=== PATIENT | female | born 1990 | race Caucasian/White ===

== ENCOUNTER 2021-04-07 04:43 | Emergency (ER) | payer OTHER, SELFPAY ==
[2021-04-07 04:52] VITALS: BP 148/105; PULSE 90; RESP 20; TEMP 36.6; O2SAT 98; BMI 34.3
[2021-04-07 04:58] VITALS: BP 151/112; PULSE 96; RESP 24; O2SAT 97
--- NOTE | 2021-04-07 04:59 | CTR_ITS ---
PROCEDURE INFORMATION: Exam: CT Abdomen And Pelvis With Contrast Exam date and time: 04/07/2021 4:59 AM Age: 31 years old Clinical indication: Abdominal pain; Acute; Additional info: Abd pain TECHNIQUE: Imaging protocol: Computed tomography of the abdomen and pelvis with contrast. Radiation optimization: All CT scans at this facility use at least one of these dose optimization techniques: automated exposure control; mA and/or kV adjustment per patient size (includes targeted exams where dose is matched to clinical indication); or iterative reconstruction. Contrast material: OMNI 300; Contrast volume: 95 ml; Contrast route: INTRAVENOUS (IV); COMPARISON: CT Abdomen/Pelvis Renal 05754 11/02/2014 2:52 PM RADIATION DOSE METRICS: Total DLP (mGy-cm): 1642.5 FINDINGS: Liver: Normal. No mass. Gallbladder and bile ducts: Normal. No calcified stones. No ductal dilation. Pancreas: Normal. No ductal dilation. Spleen: Normal. No splenomegaly. Adrenal glands: Normal. No mass. Kidneys and ureters: There is a 1.4 mm nonobstructing calculus seen in the upper pole of the left kidney. There is a delayed nephrogram seen on the right. There is hydronephrosis and hydroureter seen with a partially obstructing 4 mm distal right ureteral calculus seen within the right hemipelvis. Stomach and bowel: Unremarkable. No obstruction. No mucosal thickening. Appendix: No evidence of appendicitis. Intraperitoneal space: Unremarkable. No free air. No significant fluid collection. Vasculature: Unremarkable. No abdominal aortic aneurysm. Lymph nodes: Unremarkable. No enlarged lymph nodes. Urinary bladder: Unremarkable as visualized. Reproductive: There is a 4 x 4 x 4.5 cm hypoattenuation cystic mass seen within the right ovary compatible with a benign or functional ovarian cyst. There is a heterogeneous myometrial mass seen within the uterine fundus on the left measuring approximately 4.9 x 5.5 x 4.4 cm. This likely represents a uterine fibroid. Bones/joints: Unremarkable. No acute fracture. Soft tissues: Unremarkable. CT/CT abdomen pelvis w con* [id number] IMPRESSION: 1. Partially obstructing 4 mm distal right ureteral calculus seen within the right hemipelvis. 2. Nonobstructing 1.4 mm left renal calculus. 3. Probable benign uterine fibroid measuring up to 5.5 cm. 4. Benign or functional right ovarian cyst measuring up to 4.5 cm. No further workup needed. Radiation Dose CTDIVOL = (mGy): DLP = 1642.5 (mGy-cm)
--- NOTE | 2021-04-07 05:00 | ED_ITS ---
Documented by User: Vanessa Baumann MD 04/07/21 05:02 HPI - Abdominal Pain General: Chief Complaint: Abdominal Pain Stated Complaint: r sided abd pain Time Seen by Provider: 04/07/21 04:54 Source: patient Mode of arrival: ambulatory Limitations: no limitations History of Present Illness: HPI narrative: 31-year-old female who states she been having abdominal pain over the last 6 days. States it has been in the right lower quadrant suprapubic and right flank. She states that this came and went but tonight it got much worse. States her pain is currently an 8 out of 10. She denies any nausea vomiting. Denies any fever. She denies any worsening or improving factors. MD elicited complaint: abdominal pain Associated Symptoms: Denies chills, dysuria and fever(s) Review of Systems Const: Denies: fever(s), chills, body aches or change in appetite Eyes: Denies: blurry vision or eye discomfort ENMT: Denies: throat pain or dental pain Card: Denies: chest pain Resp: Denies: dyspnea GI: Reports: abdominal pain : Denies: dysuria Musc: Denies: neck pain or back pain Skin/Breast: Denies: rash Neuro: Denies: headache(s) Psych: Denies: depression [place]/Lymph: Denies: easy bruising All/Imm: Denies: urticaria Physical Exam Const: COMMON NORMALS: no acute distress, patient oriented x3 and healthy appearing HENMT: COMMON NORMALS: normocephalic and atraumatic HEAD & SCALP: normocephalic and atraumatic Eye: COMMON NORMALS: Equal, round and reactive pupils present and EOMs intact bilaterally PUPIL: Yes Equal, round and reactive pupils present Neck/C-Spine: COMMON NORMALS: full ROM and supple Chest: COMMONS NORMALS: normal inspection of the chest and normal palpation of entire chest wall Resp: COMMON NORMALS: normal respiratory effort, No retractions, No use of accessory muscles and clear to auscultation bilaterally AUSCULTATION: clear to auscultation bilaterally Cardio: COMMON NORMALS: regular rate, regular rhythm and No murmurs present (Cardio) RATE: regular rate RHYTHM: regular rhythm GI: COMMON NORMALS: Normal to inspection, nondistended, normoactive bowel sounds present, Soft to palpation, non-tender and no masses PALPATION: Yes Soft to palpation and Yes Tenderness to palpation present (GI) Details: RLQ Extremity: COMMON NORMALS: normal to inspection and full ROM Neuro: COMMON NORMALS: patient oriented x3, moves all extremities and no focal motor deficits Psych: COMMON NORMALS: mental status grossly normal, Normal thought process present and cooperative THOUGHT PROCESS: Normal thought process present Skin: COMMON NORMALS: no rashes or lesions noted and no wounds GENERAL SKIN EXAM: no rashes or lesions noted Course Vital Signs: Vital signs: Vital Signs Temperature 98 F 04/07/21 04:52 Pulse Rate 74 04/07/21 06:17 Respiratory Rate 18 04/07/21 06:17 Blood Pressure 126/82 04/07/21 06:17 Pulse Oximetry 97 04/07/21 06:17 MDM - Abdominal Pain Lab Data: Labs: Lab Results 04/07/21 04/07/21 04/07/21 Range/Units 05:00 05:00 05:00 WBC 9.3 (4.0-10.0) 10^3/ uL RBC 4.96 (4.1-5.3) 10^6/u L Hgb 13.6 (11.5-15.3) g/dL Hct 43.2 (37.0-47.0) % MCV 87.1 (81-99) fL MCH 27.4 L (28.0-34.0) pg MCHC 31.5 (30.0-36.0) g/dL RDW 13.2 (12.1-15.1) % Plt Count 392 (130-400) 10^3/c mm MPV 9.4 (7.4-10.4) fL Neut % (Auto) 52.7 % Lymph % (Auto) 34.1 % [place] % (Auto) 8.3 % Eos % (Auto) 3.6 % Baso % (Auto) 1.1 % Neut # (Auto) 4.89 (1.8-7.7) 10^3/u L Lymph # (Auto) 3.2 (0.8-4.8) 10^3/u L [place] # (Auto) 0.8 (0.2-0.9) 10^3/u L Eos # (Auto) 0.3 (0.0-0.8) 10^3/u L Baso # (Auto) 0.1 (0.0-0.1) 10^3/u L Nucleated RBC % (a uto) 0 % Nucleated RBCs # 0.0 /100WBC Sodium 140 (136-145) mmol/L Potassium 4.0 (3.5-5.1) mmol/L Chloride 104 (98-107) mmol/L Carbon Dioxide 24 (22-29) mmol/L Anion Gap 16.0 (5-19) BUN 10 (6-20) mg/dL Creatinine 0.8 (0.5-0.9) mg/dL GFR Calculation 82.6 L (90-130) mL/min Glucose 90 (65-115) mg/dL Calculated Osmolal ity 289 (285-295) mOsm/k g Calcium 8.9 (8.5-10.5) mg/dL Total Bilirubin 0.3 (0.15-1.2) mg/dL AST 18 (0-32) U/L ALT 20 (0-33) U/L Alkaline Phosphata se 66 (35-105) IU/L Total Protein 6.7 (6.6-8.7) g/dL Albumin 4.3 (3.5-5.2) g/dL Globulin 2.4 (1.3-4.6) g/dL Lipase 16 (13-60) U/L HCG, Qual Negative (Negative) Urine Color (Yellow) Urine Appearance (CLEAR) Urine pH (5-7) Ur Specific Gravit y (1.005-1.030) Urine Protein (Negative) Urine Glucose (UA) (Normal) Urine Ketones (Negative) Urine Blood (Negative) Urine Nitrate (Negative) Urine Bilirubin (Negative) Urine Urobilinogen (Negative) mg/dL Ur Leukocyte Karoline ase (Negative) Urine RBC (0-2) /hpf Urine WBC (0-5) /hpf Ur Squamous Epith Cells (0-5) /hpf Amorphous Sediment Urine Bacteria (NONE) /hpf 04/07/21 Range/Units 05:10 WBC (4.0-10.0) 10^3/ uL RBC (4.1-5.3) 10^6/u L Hgb (11.5-15.3) g/dL Hct (37.0-47.0) % MCV (81-99) fL MCH (28.0-34.0) pg MCHC (30.0-36.0) g/dL RDW (12.1-15.1) % Plt Count (130-400) 10^3/c mm MPV (7.4-10.4) fL Neut % (Auto) % Lymph % (Auto) % [place] % (Auto) % Eos % (Auto) % Baso % (Auto) % Neut # (Auto) (1.8-7.7) 10^3/u L Lymph # (Auto) (0.8-4.8) 10^3/u L [place] # (Auto) (0.2-0.9) 10^3/u L Eos # (Auto) (0.0-0.8) 10^3/u L Baso # (Auto) (0.0-0.1) 10^3/u L Nucleated RBC % (a uto) % Nucleated RBCs # /100WBC Sodium (136-145) mmol/L Potassium (3.5-5.1) mmol/L Chloride (98-107) mmol/L Carbon Dioxide (22-29) mmol/L Anion Gap (5-19) BUN (6-20) mg/dL Creatinine (0.5-0.9) mg/dL GFR Calculation (90-130) mL/min Glucose (65-115) mg/dL Calculated Osmolal ity (285-295) mOsm/k g Calcium (8.5-10.5) mg/dL Total Bilirubin (0.15-1.2) mg/dL AST (0-32) U/L ALT (0-33) U/L Alkaline Phosphata se (35-105) IU/L Total Protein (6.6-8.7) g/dL Albumin (3.5-5.2) g/dL Globulin (1.3-4.6) g/dL Lipase (13-60) U/L HCG, Qual (Negative) Urine Color Yellow (Yellow) Urine Appearance Turbid (CLEAR) Urine pH 5 (5-7) Ur Specific Gravit y 1.025 (1.005-1.030) Urine Protein Trace (Negative) Urine Glucose (UA) Norm (Normal) Urine Ketones Negative (Negative) Urine Blood 3+ H (Negative) Urine Nitrate Negative (Negative) Urine Bilirubin Neg (Negative) Urine Urobilinogen 1 H (Negative) mg/dL Ur Leukocyte Karoline ase Trace H (Negative) Urine RBC 50-80 H (0-2) /hpf Urine WBC 5-10 H (0-5) /hpf Ur Squamous Epith Cells 40-55 H (0-5) /hpf Amorphous Sediment Not Reportable Urine Bacteria 2+ H (NONE) /hpf Discharge Plan Discharge Patient Disposition: Home Clinical Impression: Calculus of kidney Condition: Stable Prescriptions: New Zofran 4 mg tablet 4 mg PO Q6H PRN (Reason: nausea and vomiting) Qty: 15 RF: 0 tamsulosin 0.4 mg capsule 0.4 mg PO DAILY Qty: 20 RF: 0 Percocet 5-325 mg tablet 1 tab PO Q4H PRN (Reason: pain) Qty: 20 RF: 0 Discharge Orders: Discharge ED (Routine); Ordered 04/07/21 Ordered By: Aftab Granados Referrals: Tomas Barnett MD [Primary Care Provider] - Patient Instructions: Opioid Safety Activity Restrictions/Additional Instructions: horticultural farm manager 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 Palma. Strain urine. If pain becomes uncontrolled return to the emergency room. Sign Out Sign Out Data: Patient Sign Out occurred on 04/07/21 at 06:33. Patient's care was discussed, and care was transferred from to Aftab Granados DO. Coding Level of Care Code ED Custom Harvester for Chg Fwd Exam Comprehensive Documented by User: Aftab Granados DO 04/07/21 07:26 HPI - Abdominal Pain General: Chief Complaint: Abdominal Pain Stated Complaint: r sided abd pain Time Seen by Provider: 04/07/21 04:54 Course Vital Signs: Vital signs: Vital Signs Temperature 98 F 04/07/21 04:52 Pulse Rate 74 04/07/21 06:17 Respiratory Rate 18 04/07/21 06:17 Blood Pressure 126/82 04/07/21 06:17 Pulse Oximetry 97 04/07/21 06:17 MDM - Abdominal Pain MDM Narrative: Medical decision making narrative: Care assumed a change of shift patient has a history of nephrolithiasis he she does have hematuria CT showed right renal stone slightly greater than 4 mm. Pain is well controlled at this time discharge home with urine strainer Zofran Percocet (because she is has GI side effects with hydrocodone) and tamsulosin. Follow-up with Dr. Palma. Lab Data: Attestation: I reviewed the patient's lab results. Labs: Lab Results 04/07/21 04/07/21 04/07/21 Range/Units 05:00 05:00 05:00 WBC 9.3 (4.0-10.0) 10^3/ uL RBC 4.96 (4.1-5.3) 10^6/u L Hgb 13.6 (11.5-15.3) g/dL Hct 43.2 (37.0-47.0) % MCV 87.1 (81-99) fL MCH 27.4 L (28.0-34.0) pg MCHC 31.5 (30.0-36.0) g/dL RDW 13.2 (12.1-15.1) % Plt Count 392 (130-400) 10^3/c mm MPV 9.4 (7.4-10.4) fL Neut % (Auto) 52.7 % Lymph % (Auto) 34.1 % [place] % (Auto) 8.3 % Eos % (Auto) 3.6 % Baso % (Auto) 1.1 % Neut # (Auto) 4.89 (1.8-7.7) 10^3/u L Lymph # (Auto) 3.2 (0.8-4.8) 10^3/u L [place] # (Auto) 0.8 (0.2-0.9) 10^3/u L Eos # (Auto) 0.3 (0.0-0.8) 10^3/u L Baso # (Auto) 0.1 (0.0-0.1) 10^3/u L Nucleated RBC % (a uto) 0 % Nucleated RBCs # 0.0 /100WBC Sodium 140 (136-145) mmol/L Potassium 4.0 (3.5-5.1) mmol/L Chloride 104 (98-107) mmol/L Carbon Dioxide 24 (22-29) mmol/L Anion Gap 16.0 (5-19) BUN 10 (6-20) mg/dL Creatinine 0.8 (0.5-0.9) mg/dL GFR Calculation 82.6 L (90-130) mL/min Glucose 90 (65-115) mg/dL Calculated Osmolal ity 289 (285-295) mOsm/k g Calcium 8.9 (8.5-10.5) mg/dL Total Bilirubin 0.3 (0.15-1.2) mg/dL AST 18 (0-32) U/L ALT 20 (0-33) U/L Alkaline Phosphata se 66 (35-105) IU/L Total Protein 6.7 (6.6-8.7) g/dL Albumin 4.3 (3.5-5.2) g/dL Globulin 2.4 (1.3-4.6) g/dL Lipase 16 (13-60) U/L HCG, Qual Negative (Negative) Urine Color (Yellow) Urine Appearance (CLEAR) Urine pH (5-7) Ur Specific Gravit y (1.005-1.030) Urine Protein (Negative) Urine Glucose (UA) (Normal) Urine Ketones (Negative) Urine Blood (Negative) Urine Nitrate (Negative) Urine Bilirubin (Negative) Urine Urobilinogen (Negative) mg/dL Ur Leukocyte Karoline ase (Negative) Urine RBC (0-2) /hpf Urine WBC (0-5) /hpf Ur Squamous Epith Cells (0-5) /hpf Amorphous Sediment Urine Bacteria (NONE) /hpf 04/07/21 Range/Units 05:10 WBC (4.0-10.0) 10^3/ uL RBC (4.1-5.3) 10^6/u L Hgb (11.5-15.3) g/dL Hct (37.0-47.0) % MCV (81-99) fL MCH (28.0-34.0) pg MCHC (30.0-36.0) g/dL RDW (12.1-15.1) % Plt Count (130-400) 10^3/c mm MPV (7.4-10.4) fL Neut % (Auto) % Lymph % (Auto) % [place] % (Auto) % Eos % (Auto) % Baso % (Auto) % Neut # (Auto) (1.8-7.7) 10^3/u L Lymph # (Auto) (0.8-4.8) 10^3/u L [place] # (Auto) (0.2-0.9) 10^3/u L Eos # (Auto) (0.0-0.8) 10^3/u L Baso # (Auto) (0.0-0.1) 10^3/u L Nucleated RBC % (a uto) % Nucleated RBCs # /100WBC Sodium (136-145) mmol/L Potassium (3.5-5.1) mmol/L Chloride (98-107) mmol/L Carbon Dioxide (22-29) mmol/L Anion Gap (5-19) BUN (6-20) mg/dL Creatinine (0.5-0.9) mg/dL GFR Calculation (90-130) mL/min Glucose (65-115) mg/dL Calculated Osmolal ity (285-295) mOsm/k g Calcium (8.5-10.5) mg/dL Total Bilirubin (0.15-1.2) mg/dL AST (0-32) U/L ALT (0-33) U/L Alkaline Phosphata se (35-105) IU/L Total Protein (6.6-8.7) g/dL Albumin (3.5-5.2) g/dL Globulin (1.3-4.6) g/dL Lipase (13-60) U/L HCG, Qual (Negative) Urine Color Yellow (Yellow) Urine Appearance Turbid (CLEAR) Urine pH 5 (5-7) Ur Specific Gravit y 1.025 (1.005-1.030) Urine Protein Trace (Negative) Urine Glucose (UA) Norm (Normal) Urine Ketones Negative (Negative) Urine Blood 3+ H (Negative) Urine Nitrate Negative (Negative) Urine Bilirubin Neg (Negative) Urine Urobilinogen 1 H (Negative) mg/dL Ur Leukocyte Karoline ase Trace H (Negative) Urine RBC 50-80 H (0-2) /hpf Urine WBC 5-10 H (0-5) /hpf Ur Squamous Epith Cells 40-55 H (0-5) /hpf Amorphous Sediment Not Reportable Urine Bacteria 2+ H (NONE) /hpf Discharge Plan Discharge Patient Disposition: Home Clinical Impression: Calculus of kidney Condition: Stable Prescriptions: New Zofran 4 mg tablet 4 mg PO Q6H PRN (Reason: nausea and vomiting) Qty: 15 RF: 0 tamsulosin 0.4 mg capsule 0.4 mg PO DAILY Qty: 20 RF: 0 Percocet 5-325 mg tablet 1 tab PO Q4H PRN (Reason: pain) Qty: 20 RF: 0 Discharge Orders: Discharge ED (Routine); Ordered 04/07/21 Ordered By: Aftab Granados Referrals: Tomas Barnett MD [Primary Care Provider] - Patient Instructions: Opioid Safety Activity Restrictions/Additional Instructions: horticultural farm manager 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 Palma. Strain urine. If pain becomes uncontrolled return to the emergency room. Sign Out Sign Out Data: Patient Sign Out occurred on 04/07/21 at 06:33. Patient's care was discussed, and care was transferred from to Aftab Granados DO. Coding Level of Care Code ED Custom Harvester for Chg Fwd Exam Comprehensive
[2021-04-07 05:11] LABS: Basophils # 0.1 10^3/uL (0.0-0.1); Basophils % 1.1 %; Eosinophils # 0.3 10^3/uL (0.0-0.8); Eosinophils % 3.6 %; Hematocrit 43.2 % (37.0-47.0); Hemoglobin 13.6 g/dL (11.5-15.3); Lymphocytes # 3.2 10^3/uL (0.8-4.8); Lymphocytes % 34.1 %; Mean Corpuscular HGB Conc 31.5 g/dL (30.0-36.0); Mean Corpuscular Hemoglobin 27.4 pg (28.0-34.0); Mean Corpuscular Volume 87.1 fL (81-99); Mean Platelet Volume 9.4 fL (7.4-10.4); Monocytes # 0.8 10^3/uL (0.2-0.9); Monocytes % 8.3 %; Neutrophils # 4.89 10^3/uL (1.8-7.7); Neutrophils % 52.7 %; Nucleated Red Blood Cells % 0 %; Platelet Count 392 10^3/cmm (130-400); Red Blood Count 4.96 10^6/uL (4.1-5.3); Red Cell Distribution Width 13.2 % (12.1-15.1); White Blood Count 9.3 10^3/uL (4.0-10.0)
[2021-04-07] MEDS: sodium chloride 0.9% 1,000 ML 999 ML IV (05:23)
[2021-04-07 05:25] VITALS: RESP 24; O2SAT 98
[2021-04-07] MEDS: ondansetron 2 mg/ML SDV 2 mL 4 MG IVP (05:25)
[2021-04-07] MEDS: HYDROmorphone 1 mg/mL INJ 1 mL 0.5 MG IVP (05:25)
[2021-04-07 05:29] LABS: HCG, Serum Qual Negative (Negative)
[2021-04-07 05:35] LABS: Specific Gravity, Urine 1.025 (1.005-1.030); Urine Appearance Turbid (CLEAR); Urine Color Yellow (Yellow); pH Urine 5 (5-7)
[2021-04-07 05:36] LABS: Add Urine Microscopic? YES; Bilirubin Urine Neg (Negative); Blood Urine 3+ (Negative); Glucose Urine UA Norm (Normal); Ketones Urine Negative (Negative); Leukocyte Esterase Urine Trace (Negative); Nitrate Urine Negative (Negative); Protein Urine Trace (Negative); Urobilinogen Urine 1 mg/dL (Negative)
[2021-04-07 05:38] LABS: Alanine Aminotransferase 20 U/L (0-33); Albumin Level 4.3 g/dL (3.5-5.2); Alkaline Phosphatase 66 IU/L (35-105); Aspartate Amino Transferase 18 U/L (0-32); Blood Urea Nitrogen 10 mg/dL (6-20); Calcium 8.9 mg/dL (8.5-10.5); Carbon Dioxide 24 mmol/L (22-29); Chloride 104 mmol/L (98-107); Globulin 2.4 g/dL (1.3-4.6); Glomerular Filtration Rate 82.6 mL/min (90-130); Glucose 90 mg/dL (65-115); Lipase 16 U/L (13-60); Osmolality Calculated 289 mOsm/kg (285-295); Sodium 140 mmol/L (136-145); Total Bilirubin 0.3 mg/dL (0.15-1.2); Total Protein 6.7 g/dL (6.6-8.7)
[2021-04-07 06:00] VITALS: BP 154/90; PULSE 84; RESP 20; O2SAT 97
[2021-04-07 06:03] LABS: Add Urine Culture? No; Bacteria Urine 2+ /hpf; RBC Urine 50-80 /hpf (0-2); Squamous Epithelial Cell Urine 40-55 /hpf (0-5)
[2021-04-07 06:17] VITALS: BP 126/82; PULSE 74; RESP 18; O2SAT 97
--- NOTE | 2021-04-07 09:26 | DCPLANNER ---
manager green had message to schedule a follow up appointment for patient with Dr. Palma. manager green called the office of Dr. Palma, spoke with Alfonso, gave clinic patients information. manager green was told that patients information would be printed and reviewed. Clinic will call patient with appointment information.
--- NOTE | 2021-04-08 07:46 | DCPLANNER ---
Patient has a follow up appointment scheduled for Wednesday, April 09, 2021 at 9:[address] Palma. Clinic will call patient with appointment information.
--- NOTE | 2021-04-17 12:35 | DCPLANNER ---
Patient had a follow up appointment scheduled for 04.09.[address] Palma - patient did attend appointment.
== END 2021-04-07 07:31 | disposition home or self-care (01) ==
PROVIDERS: Emergency Medicine; Emergency Provider Family Medicine; PCP Family Medicine
DX: N20.0 Calculus of kidney (principal)
CPT/HCPCS: 74177; 80053; 81001; 83690; 84703; 85025; 96361; 96374; 96375; 99284; J1170; J2405; J7030

== ENCOUNTER 2021-04-09 08:40 | Outpatient (CLI) | payer OTHER, SELFPAY ==
--- NOTE | 2021-04-09 08:30 | XR_ITS ---
WS: [id number] K[facility], AP view, 04/09/2021 Clinical Data: STONES Comparison: CT abdomen and pelvis, 04/07/2021, KUB, 12/26/2014. Findings: No abnormal intraabdominal masses or calcifications are seen. There is no dilatated small bowel or ev idence of obstruction. Fecal material and colon gas obscure detail over both kidneys. In the true pelvis there is a calcific ation on the right measuring 0.6 cm which could represent the distal right ureteral calculus noted on the CT abdomen and pelvis. The bladder is full. XR/XR KUB [id number] Impression: Possible right UVJ calculus.
== END 2021-04-09 08:41 | disposition home or self-care (01) ==
LOC: RAD 08:43
PROVIDERS: PCP Family Medicine; Visit Provider Urology
DX: N20.0 Calculus of kidney (principal)
CPT/HCPCS: 74018; 81003

== ENCOUNTER 2021-04-17 10:33 | Outpatient (CLI) | payer OTHER, SELFPAY ==
--- NOTE | 2021-04-17 10:00 | XR_ITS ---
WS: [id number] KUB, AP view, 04/17/2021 Clinical Data: CALCULUS OF KIDNEY Comparison: KUB, 04/09/2021 Findings: No abnormal intraabdominal masses or calcifications are seen. There is no dilatated small bowel or ev idence of obstruction. The true pelvis shows no abnormal calcifications. The possible right ureterovesical vesicle junction calcification is not seen. There is a large amount of fecal material and colon gas obscuring detail o sofia both kidneys. XR/XR KUB [id number] Impression: Possible right UVJ calculus is not seen on the current exam.
== END 2021-04-17 10:34 | disposition home or self-care (01) ==
LOC: RAD 10:33
PROVIDERS: PCP Family Medicine; Visit Provider Urology
DX: N20.0 Calculus of kidney (principal); N20.1 Calculus of ureter
CPT/HCPCS: 74018; 81003

== ENCOUNTER 2023-02-08 10:30 | Emergency (ER) | payer OTHER, SELFPAY ==
[2023-02-08 10:32] VITALS: BP 137/85; PULSE 71; RESP 18; TEMP 36.7; O2SAT 99
--- NOTE | 2023-02-08 12:29 | PC.NURSE ---
Patient not in waiting room
--- NOTE | 2023-02-08 12:57 | W.ED.CHESTPA ---
HPI - Chest Pain General: Chief Complaint: Chest Pain Stated Complaint: left arm tingling, chest pain Time Seen by Provider: 02/08/23 12:46 Source: patient Mode of arrival: ambulatory Limitations: no limitations History of Present Illness: This 32-year-old female presents to the ER for evaluation of chest pain and chest fluttering. She notes that yesterday, her heart was fluttering quite a bit. This morning around 9 AM, she noticed some dull chest pain that was associated with heart fluttering. She also complained of tingling in the arm, headache and dizziness. Patient has no prior history of coronary artery disease. She denies any past history of anxiety or panic attacks but states that her tells her she appears to be under a lot of stress. Patient has no cough, shortness of breath, fever, GI problems or any other pertinent symptoms. She appears clinically stable. Associated symptoms: Reports palpitations Review of Systems Const: Denies: chills, body aches or change in appetite Eyes: Denies: change in vision or eye discharge ENMT: Denies: throat pain, dental pain or nasal discharge Card: Reports: chest pain, palpitations, lightheadedness and other (Tingling in left arm.) : Denies: dysuria Musc: Denies: neck pain or back pain Neuro: Denies: headache(s) or weakness in extremities Psych: Denies: depression [place]las/Lymph: Denies: easy bruising All/Imm: Denies: urticaria, tongue swelling or facial swelling PFSH ED PFSH: Social History Alcohol intake: current Alcohol intake frequency: holidays/special occasions only Adopted: Yes Marital status: Current occupational status: employed Physical Exam Const: COMMON NORMALS: no acute distress, patient oriented x3, no limitations and alert HENMT: COMMON NORMALS: normocephalic HEAD & SCALP: normocephalic Eye: COMMON NORMALS: EOMs intact bilaterally Neck/C-Spine: COMMON NORMALS: full ROM and supple Chest: COMMONS NORMALS: normal inspection of the chest Resp: COMMON NORMALS: normal respiratory effort, No retractions, No use of accessory muscles and clear to auscultation bilaterally AUSCULTATION: clear to auscultation bilaterally OTHER: Tenderness on palpation of the mid sternal region, area that hurts. Cardio: COMMON NORMALS: regular rate, regular rhythm and No murmurs present (Cardio) RATE: regular rate RHYTHM: regular rhythm GI: COMMON NORMALS: Normal to inspection, nondistended, normoactive bowel sounds present and non-tender : COMMON NORMALS: Yes no CVA tenderness BLADDER/KIDNEY EXAM: Yes no CVA tenderness Back/Pelvis: COMMON NORMALS: no CVA tenderness and no thoracic nor lumbar tenderness Extremity: GENERAL: Yes normal exam except as noted Neuro: COMMON NORMALS: patient oriented x3 and no focal motor deficits SENSORIUM/ORIENTATION: Yes alert Psych: COMMON NORMALS: mental status grossly normal and cooperative Course Vital Signs: Vital signs: Vital Signs Temperature 98.1 F 02/08/23 10:32 Pulse Rate 67 02/08/23 14:03 Respiratory Rate 18 02/08/23 10:32 Blood Pressure 134/60 02/08/23 14:03 Pulse Oximetry 100 02/08/23 14:03 Oxygen Delivery Me thod Room Air 02/08/23 14:03 MDM - Chest Pain Medical Decision Making Medical decision making: History as above. Patient appears to be under a lot of stress though she does not personally acknowledge it. While here in the ER, it is easy to tell that she is anxious. Initial troponin and repeat troponin 2 hours later show a delta of 0. EKG is negative for any acute ischemic process. At this time, there is nothing to suggest that she is having an acute coronary syndrome. She will benefit from an outpatient Holter monitor which her primary care physician can set her up with. She may also benefit from a stress test. She was advised to return if she develops any new or concerning symptoms. Patient verbalized understanding and agrees with the plan. Lab Data 02/08/23 13:12 02/08/23 13:12 Laboratory Results WBC 8.9 10^3/uL (4.0-10.0) 02/08/23 13:12 RBC 4.55 10^6/uL (4.1-5.3) 02/08/23 13:12 Hgb 13.3 g/dL (11.5-15.3) 02/08/23 13:12 Hct 41.4 % (37.0-47.0) 02/08/23 13:12 MCV 91.0 fl (81-99) 02/08/23 13:12 MCH 29.2 pg (28.0-34.0) 02/08/23 13:12 MCHC 32.1 g/dL (30.0-36.0) 02/08/23 13:12 RDW 13.0 % (12.1-15.1) 02/08/23 13:12 Plt Count 345 10^3/cmm (130-400) 02/08/23 13:12 MPV 9.2 fL (7.4-10.4) 02/08/23 13:12 Neut % (Auto) 63.1 % 02/08/23 13:12 Lymph % (Auto) 25.5 % 02/08/23 13:12 [place] % (Auto) 6.1 % 02/08/23 13:12 Eos % (Auto) 3.6 % 02/08/23 13:12 Baso % (Auto) 1.4 % 02/08/23 13:12 Neut # (Auto) 5.58 10^3/uL (1.8-7.7) 02/08/23 13:12 Lymph # (Auto) 2.3 10^3/uL (0.8-4.8) 02/08/23 13:12 [place] # (Auto) 0.5 10^3/uL (0.2-0.9) 02/08/23 13:12 Eos # (Auto) 0.3 10^3/uL (0.0-0.8) 02/08/23 13:12 Baso # (Auto) 0.1 10^3/uL (0.0-0.1) 02/08/23 13:12 Nucleated RBC % (auto) 0 % 02/08/23 13:12 Nucleated RBCs # 0.0 /100WBC 02/08/23 13:12 Sodium 133 mmol/L (136-145) L 02/08/23 13:12 Potassium 3.9 mmol/L (3.5-5.1) 02/08/23 13:12 Chloride 101 mmol/L (98-107) 02/08/23 13:12 Carbon Dioxide 23 mmol/L (22-29) 02/08/23 13:12 Anion Gap 12.9 (5-19) 02/08/23 13:12 BUN 13 mg/dL (6-20) 02/08/23 13:12 Creatinine 0.6 mg/dL (0.5-0.9) 02/08/23 13:12 GFR Calculation 114.4 mL/min (90-130) 02/08/23 13:12 Glucose 79 mg/dL (65-115) 02/08/23 13:12 Calculated Osmolality 275 mOsm/kg (285-295) L 02/08/23 13:12 Calcium 8.7 mg/dL (8.5-10.5) 02/08/23 13:12 Total Bilirubin 0.2 mg/dL (0.15-1.2) 02/08/23 13:12 AST 22 U/L (0-32) 02/08/23 13:12 ALT 26 U/L (0-33) 02/08/23 13:12 Alkaline Phosphatase 49 U/L (35-105) 02/08/23 13:12 Troponin T Baseline 6 ng/L (0-10) 02/08/23 13:12 Troponin T 120 Minute 6.00 ng/L (0-10) 02/08/23 15:18 Delta Troponin T 0 ABS# (0-10) 02/08/23 15:18 Total Protein 7.1 g/dL (6.6-8.7) 02/08/23 13:12 Albumin 4.4 g/dL (3.5-5.2) 02/08/23 13:12 Globulin 2.7 g/dL (1.3-4.6) 02/08/23 13:12 EKG Data EKG 1: Interpretation: 1316 hrs., sinus rhythm with sinus arrhythmia, rate of 65, right bundle branch block, normal intervals, no STEMI. Discharge Plan Discharge Patient Disposition: Home Clinical Impression: Heart palpitations, Atypical chest pain Condition: Stable Prescriptions: No Action Midol 500-25 mg Tablet 2 tab PO Q6H PRN (Reason: Pain) Excedrin IB 200 mg Tablet 400 mg PO Q6H PRN (Reason: Pain) albuterol sulfate 90 mcg/actuation Hfa Aerosol Inhaler 1 puff INHALATION QID PRN (Reason: Shortness Of Breath Or Wheezing) Discharge Orders: Discharge ED (Routine); Ordered 02/08/23 Ordered By: Dom Rodriguez Referrals: Tomas Barnett MD [Primary Care Provider] - Discharge Diet: Usual diet Discharge Activity: Resume usual activity Patient Instructions: Opioid Safety, Pain Management Activity Restrictions/Additional Instructions: Continue your usual home medications. Follow-up with your primary care physician for an outpatient Holter monitor. It will help reveal if you have any abnormal heart rhythms. Rest and reduce your level of stress as much as you can. Return with new or worsening symptoms. Coding Level of Care Code ED Records Assistant for Cinthya Corbin
--- NOTE | 2023-02-08 13:13 | ECG_ITS ---
[facility] Test Date: 2023-02-08 Pat Name: Louisa Suárez Department: Room: Gender: Female [employer]: : 1990 Requested By: Dom Davenport Order Number: [id number] Toribio MD: Vira Toribio M.D. Measurements Intervals [place] Rate: 65 P: 40 SD: 146 QRS: 54 QRSD: 94 T: 57 QT: 405 QTc: 422 Interpretive Statements SINUS RHYTHM WITH SINUS ARRHYTHMIA INCOMPLETE RIGHT BUNDLE BRANCH BLOCK [90+ ms QRS DURATION, TERMINAL R IN V1/V2, 40+ ms S IN I/aVL/V4/V5/V6] No previous ECG available for comparison Electronically Signed On 02-08-2023 16:51:31 CDT by Vira Toribio M.D. [email or web address]
[2023-02-08 13:18] LABS: Basophils # 0.1 10^3/uL (0.0-0.1); Basophils % 1.4 %; Eosinophils # 0.3 10^3/uL (0.0-0.8); Eosinophils % 3.6 %; Hematocrit 41.4 % (37.0-47.0); Hemoglobin 13.3 g/dL (11.5-15.3); Lymphocytes # 2.3 10^3/uL (0.8-4.8); Lymphocytes % 25.5 %; Mean Corpuscular HGB Conc 32.1 g/dL (30.0-36.0); Mean Corpuscular Hemoglobin 29.2 pg (28.0-34.0); Mean Platelet Volume 9.2 fL (7.4-10.4); Monocytes # 0.5 10^3/uL (0.2-0.9); Monocytes % 6.1 %; Neutrophils # 5.58 10^3/uL (1.8-7.7); Neutrophils % 63.1 %; Nucleated Red Blood Cells % 0 %; Platelet Count 345 10^3/cmm (130-400); Red Blood Count 4.55 10^6/uL (4.1-5.3); White Blood Count 8.9 10^3/uL (4.0-10.0)
[2023-02-08 13:42] LABS: Alanine Aminotransferase 26 U/L (0-33); Albumin Level 4.4 g/dL (3.5-5.2); Alkaline Phosphatase 49 U/L (35-105); Anion Gap 12.9 (5-19); Aspartate Amino Transferase 22 U/L (0-32); Blood Urea Nitrogen 13 mg/dL (6-20); Calcium 8.7 mg/dL (8.5-10.5); Carbon Dioxide 23 mmol/L (22-29); Chloride 101 mmol/L (98-107); Globulin 2.7 g/dL (1.3-4.6); Glomerular Filtration Rate 114.4 mL/min (90-130); Glucose 79 mg/dL (65-115); Osmolality Calculated 275 mOsm/kg (285-295); Potassium 3.9 mmol/L (3.5-5.1); Sodium 133 mmol/L (136-145); Total Bilirubin 0.2 mg/dL (0.15-1.2); Total Protein 7.1 g/dL (6.6-8.7)
[2023-02-08 13:43] LABS: Troponin(5th) Baseline 6 ng/L (0-10)
[2023-02-08] MEDS: aspirin 81 mg Chew Tablet 324 MG PO (13:56)
[2023-02-08 14:03] VITALS: BP 134/60; PULSE 67; O2SAT 100
[2023-02-08 16:02] LABS: Troponin 5 2HR Delta 0 ABS# (0-10)
[2023-02-08 16:25] VITALS: BP 134/60; PULSE 67; O2SAT 100
== END 2023-02-08 16:27 | disposition home or self-care (01) ==
PROVIDERS: Emergency Provider Family Medicine; PCP Family Medicine
DX: R07.89 Other chest pain (principal); R00.2 Palpitations
CPT/HCPCS: 80053; 84484; 85025; 93005; 99285